=== PATIENT | male | born 1975 | race Caucasian/White ===

== ENCOUNTER 2025-04-22 19:46 | Emergency (ER) | payer SELFPAY ==
[2025-04-22] VITALS (14 sets, daily range): BP systolic 129–168; BP diastolic 72–105; BMI 33.5
[2025-04-22 19:56] LABS: Glucose - Point of Care 136 mg/dl (70-99)
--- NOTE | 2025-04-22 20:08 | ED.CVA ---
History of Present Illness
<Diaz Lewis PA-C - Last Filed: 04/22/25 21:01>
General
Chief Complaint: CVA/TIA Symptoms
Time Seen by Provider: 04/22/25 19:49
Onset of Stroke Symptoms
Onset of symptoms known: Yes
Date of onset of symptoms: 04/22/25
Time of onset of symptoms: 11:00
History of Present Illness
History of Present Illness:
50-year-old male with history of chronic alcohol abuse presents to the emergency department via EMS as a stroke alert per his spouse he abruptly became confused after having intercourse at approximate 11 AM today he seemed to be acting strange
throughout the day and progressively was noticed to have difficulty speaking ultimately she called 911 but she noted that his right arm was not moving. On arrival the patient is awake and follows commands although is somewhat delayed in processing.
He has mild dysarthria and aphasia as well as noticeable right upper extremity weakness. He denies alcohol intake today. No Anticoagulants or antiplatelets. Probably taken a CT scan as a stroke alert
Past History
<Diaz Lewis PA-C - Last Filed: 04/22/25 21:01>
Past History
ED Past Medical History: None
ED Past Surgical History: Appendectomy
Social History
Alcohol: Daily
Drug: Narcotics
Review of Systems
<Diaz Lewis PA-C - Last Filed: 04/22/25 21:01>
Review of Systems
Allergies reviewed?: Yes
All Other Systems: ROS reviewed and negative except as documented in HPI and ROS
Phy Exam
<Diaz Lewis PA-C - Last Filed: 04/22/25 21:01>
Physical Exam
Physical Exam:
GEN: Well appearing, NAD, WDWN
HEENT: Oral mucosa moist, no scleral icterus, no nasal congestion
Cardiac: Tachycardic, regular
Lung: No respiratory distress, no tachypnea
MSK: No gross deformity or injuries
Skin: Good color, no pallor or jaundice, no rashes
Neuro: AO x3; CN II-XII grossly intact. Right upper extremity strength 4 out of 5 with drift, left upper extremity strength 5 out of 5, right lower extremity strength 5 out of 5, left lower extremity strength 5 out of 5, significant sensory loss to
the right upper and right lower extremities. Mild dysarthria and aphasia. Positive limb ataxia to the right upper extremity, no other limb ataxia noted. Visual dior intact x 4
Psych: Calm, cooperative
Course
<Diaz Lewis PA-C - Last Filed: 04/22/25 21:01>
Orders/Labs/Results
Orders:
Orders
04/22/25 19:50
Electrocardiogram (*1) Stat
Reason for Study: Other
Other Reason for Exam: neuro symptoms
CT HEAD STROKE ALERT W/o Cont Urgent
Comment:
Reason For Exam: R sided weakness/sensation loss
CT HEAD/NECK ANG STROKE ALERT Urgent
Comment:
Reason For Exam: R sided weakness/sensation loss
EKG- Treatment ONCE
04/22/25 20:07
Alcohol Urgent
Complete Blood Count/With Diff Urgent
Comprehensive Metabolic Panel Urgent
Troponin I Urgent
Labetalol HCl [Trandate] 10 mg IV NOW STA
Labetalol HCl [Trandate] 20 mg .ROUTE .STK-MED ONE
Nicardipine 40 mg/200 ml [Cardene] 40 mg in 200 ml .ROUTE .STK-MED
04/22/25 20:15
Nicardipine 40 mg/200 ml [Cardene] 40 mg in 200 ml IV PER PROTOCOL
Initial dose in mg/hr, then titrate:: 5
Titrate to keep:: SBP 120 - 140 mmHg
Titrate by mg/hr:: 2.5 mg/hr
Frequency of titrations (minutes):: 5-15 minutes
Maximum dose in mg/hr:: 15
Begin to taper infusion when:: Remained at goal for 2hrs
Taper by mg/hr:: 2.5 mg/hr
Frequency of taper (minutes) if patient maintains goal:: every 15-30 minutes
Taper to off?: Yes
If infusion off & no longer maintaining goal:: Contact Provider
Abnormal Lab Results
04/22/25 04/22/25
19:50 20:07
RBC 4.56 L 10^6/uL
(4.70-6.10)
MCV 96.5 H fL
(80.0-94.0)
MCH 34.4 H pg
(27.0-31.0)
Absolute Lymphs (auto) 0.8 L 10^3/uL
(1.2-3.4)
Absolute Monos (auto) 0.8 H 10^3/uL
(0.1-0.6)
Lymphocytes % 12.7 L %
(20.5-51.1)
Monocytes % 13.4 H %
(1.7-9.3)
Glucose 131 H mg/dl
(70-99)
AST 194 H U/L
(17-59)
ALT 182 H U/L
(0-50)
Total Protein 8.4 H g/dl
(6.3-8.2)
POC Glucose 136 H mg/dl
(70-99)
04/22/25 20:07
04/22/25 20:07
Vital Signs
Initial and Last Documented VS:
Initial Vital Signs
Pulse Resp BP
92 16 156/105
04/22/25 19:51 04/22/25 19:51 04/22/25 19:51
Last Documented Vital Signs
Temp Pulse Resp BP Pulse Ox
99.0 F 108 20 132/72 94
04/22/25 20:14 04/22/25 20:50 04/22/25 20:50 04/22/25 20:50 04/22/25 20:35
<Johnny Goodwin, DO - Last Filed: 04/22/25 20:13>
Orders/Labs/Results
Orders:
Orders
04/22/25 19:50
Electrocardiogram (*1) Stat
Reason for Study: Other
Other Reason for Exam: neuro symptoms
CT HEAD STROKE ALERT W/o Cont Urgent
Comment:
Reason For Exam: R sided weakness/sensation loss
CT HEAD/NECK ANG STROKE ALERT Urgent
Comment:
Reason For Exam: R sided weakness/sensation loss
EKG- Treatment ONCE
04/22/25 20:07
Alcohol Urgent
Complete Blood Count/With Diff Urgent
Comprehensive Metabolic Panel Urgent
Troponin I Urgent
Labetalol HCl [Trandate] 10 mg IV NOW STA
Labetalol HCl [Trandate] 20 mg .ROUTE .STK-MED ONE
Nicardipine 40 mg/200 ml [Cardene] 40 mg in 200 ml .ROUTE .STK-MED
04/22/25 20:15
Nicardipine 40 mg/200 ml [Cardene] 40 mg in 200 ml IV PER PROTOCOL
Initial dose in mg/hr, then titrate:: 5
Titrate to keep:: SBP 120 - 140 mmHg
Titrate by mg/hr:: 2.5 mg/hr
Frequency of titrations (minutes):: 5-15 minutes
Maximum dose in mg/hr:: 15
Begin to taper infusion when:: Remained at goal for 2hrs
Taper by mg/hr:: 2.5 mg/hr
Frequency of taper (minutes) if patient maintains goal:: every 15-30 minutes
Taper to off?: Yes
If infusion off & no longer maintaining goal:: Contact Provider
Abnormal Lab Results
04/22/25 04/22/25
19:50 20:07
RBC 4.56 L 10^6/uL
(4.70-6.10)
MCV 96.5 H fL
(80.0-94.0)
MCH 34.4 H pg
(27.0-31.0)
Absolute Lymphs (auto) 0.8 L 10^3/uL
(1.2-3.4)
Absolute Monos (auto) 0.8 H 10^3/uL
(0.1-0.6)
Lymphocytes % 12.7 L %
(20.5-51.1)
Monocytes % 13.4 H %
(1.7-9.3)
Glucose 131 H mg/dl
(70-99)
AST 194 H U/L
(17-59)
ALT 182 H U/L
(0-50)
Total Protein 8.4 H g/dl
(6.3-8.2)
POC Glucose 136 H mg/dl
(70-99)
04/22/25 20:07
04/22/25 20:07
Vital Signs
Initial and Last Documented VS:
Initial Vital Signs
Pulse Resp BP
92 16 156/105
04/22/25 19:51 04/22/25 19:51 04/22/25 19:51
Last Documented Vital Signs
Temp Pulse Resp BP Pulse Ox
99.0 F 108 20 132/72 94
04/22/25 20:14 04/22/25 20:50 04/22/25 20:50 04/22/25 20:50 04/22/25 20:35
[place];Diaz Lewis PA-C - Last Filed: 04/22/25 21:01>
MDM/Problems Addressed
MDM/Problems Addressed:
Patient taken promptly to CT scanner as a stroke alert where he was identified to have a large left intraparenchymal hemorrhage. Subsequent CTA showed no evidence for aneurysmal rupture. He was promptly started on IV antihypertensives for blood
pressure control. I then discussed the case with neurosurgery and neurocritical care at the [facility], reviewed all pertinent imaging and lab findings. Patient be transferred via flight to [place] for emergent neurosurgical evaluation
and likely operative intervention. Neurologic status remained stable in the ED
<Diaz Lewis PA-C - Last Filed: 04/22/25 21:01>
*Pulse Oximetry
Patient hypoxic: no
Comment: 94%
*Critical Care Note
Total Time (30-74mins, 75-104mins- exclusive of procedures): 60 minutes
comment:
Critical care time: 60 min
Critical care time was exclusive of: Separately billable procedures, treating other patients, and teaching time
Critical care was necessary to treat or prevent imminent or life-threatening deterioration of the following conditions: ICH
Critical care time spent personally by me on the following activities:
[ x] Review of old charts
[x] Obtaining history from patient or surrogate
[x] Ordering and review of the laboratory studies
[x] Ordering and review of radiographic studies
[x] Ordering and performing treatments and interventions
[x] Patient patient's response to treatment
[x] Development of treatment plan with patient or surrogate
ED Attending Note
<Diaz Lewis PA-C - Last Filed: 04/22/25 21:01>
-
Portions of this chart may have been created with voice recognition software.� Occasional wrong word or��sound alike� substitutions may have occurred due to the inherent limitations of voice recognition software.
<Johnny Goodwin DO - Last Filed: 04/22/25 20:13>
ED Attending Note
Patient seen and examined by attending physician: Yes
I performed the substantive portion of visit, reviewed & personally made and approve the management plan that is documented in note by myself or RADHA.: Yes
ED Attending Note:
I have seen and evaluated the patient with a [id number] encounter. I have spoken to the advance practicer provider and involved in the medical history, the physical exam, medical decision making.
Evaluation and management service: agree unless noted differently below.
Results interpretation: agree unless noted differently below.
Focused HPI: 50-year-old male presenting for evaluation of trouble speaking and right arm numbness and weakness. On arrival, stroke alert was called he was sent for CT scan immediately.
Physical exam: Expressive aphasia, weakness to his right arm
Medical Decision Making: CT shows left brain intraparenchymal hemorrhage which explains symptoms. Will discuss case with neurosurgery and transfer
Discharge Plan
Departure
Patient Disposition: Acute Care Hospital
Date of Disposition: 04/22/25
Time of Disposition: 20:08
Discharge Problem:
Intracranial hemorrhage
Prescriptions:
No Action
zolpidem 10 MG tablet
10 mg PO PRN PRN (Reason: sleep)
Hospital Transfer
Other hospital: [place]
I certify that the patient requires transfer: Yes
Discussed case with accepting physician: Gaurav
Reason for transfer: higher level of care
Interventions
Interventions:
*Risk Screen - Suicide Last Done: 04/22/25 19:57
*General Assessment Last Done: 04/22/25 19:57
*Neglect/Abuse Screening Last Done: 04/22/25 19:57
*ED- Fall Risk Assessment Last Done: 04/22/25 19:57
*ED COVID-19 Vaccine History Last Done: 04/22/25 19:57
ED- Pulmonary Assessment Last Done: 04/22/25 20:16
ED- Neurological Assessment Last Done: 04/22/25 20:23
ED- Cardiac Assessment Last Done: 04/22/25 20:16
ED Swallowing Screen Last Done: 04/22/25 20:38
Discharge Date and Time
Print Language: EGYPTIAN
[2025-04-22] MEDS: TRANDATE 10 MG IV (20:10)
[2025-04-22] MEDS: CARDENE 200 IV (20:11)
[2025-04-22 20:16] LABS: % Basophils 0.8 % (0-2); % Eosinophils 0.2 % (0-6); % Immature Granulocytes 0.3 % (0-0.5); % Lymphocytes 12.7 % (20.5-51.1); % Monocytes 13.4 % (1.7-9.3); % Neutrophils 72.6 % (42.2-75.2); Absolute Basophils 0.1 10^3/uL (0-0.2); Absolute Lymphocytes 0.8 10^3/uL (1.2-3.4); Absolute Monocytes 0.8 10^3/uL (0.1-0.6); Absolute Neutrophils 4.3 10^3/uL (1.4-6.5); Hemoglobin 15.7 g/dL (13.0-18.0); Mean Corp Hgb Conc. 35.7 g/dL (33.0-37.0); Mean Corpuscular Hgb 34.4 pg (27.0-31.0); Mean Corpuscular Volume 96.5 fL (80.0-94.0); Mean Platelet Volume 9.9 fL (7.4-10.4); Nucleated Red Blood Cells % 0 % (-); Platelet Count 150 10^3/uL (130-400); Red Blood Cell Count 4.56 10^6/uL (4.70-6.10); Red Cell Dist. Width 11.8 % (11.5-14.5); White Blood Cell Count 5.9 10^3/uL (4.8-10.8)
[2025-04-22 20:31] LABS: ALT (SGPT) 182 U/L (0-50); AST (SGOT) 194 U/L (17-59); Albumin 4.9 g/dl (3.5-5.0); Alcohol 73 mg/dl; Alkaline Phosphatase 63 U/L (38-126); Blood Urea Nitrogen 14 mg/dl (9-20); Calcium 9.7 mg/dl (8.4-10.2); Carbon Dioxide 25 mmol/L (22-30); Chloride 104 mmol/L (98-107); Estimated Creatinine Clearance > 125 ml/min; Glucose 131 mg/dl (70-99); Potassium 4.1 mmol/L (3.5-5.1); Sodium 143 mmol/L (135-145); Total Bilirubin 1.3 mg/dl (0.2-1.3); Total Protein 8.4 g/dl (6.3-8.2); eGFR > 60.00
[2025-04-22 20:41] LABS: Troponin I 0.028 ng/ml
== END 2025-04-22 21:12 | disposition short-term general hospital (02) ==
LOC: EMR 19:46
PROVIDERS: Physician Assistant; EMERGENCY PHYSICIAN Student in an Organized Health Care Education/Training Program
DX: I62.9 Nontraumatic intracranial hemorrhage, unspecified (principal); Z90.49 Acquired absence of other specified parts of digestive tract
CPT/HCPCS: 99291; 96365; 96375; 70450; 70496; 70498; 80053; 82077; 82962; 84484; 85025; 93005; Q9967

== ENCOUNTER 2025-07-09 10:03 | Outpatient (RCR) | payer OTHER, SELFPAY | END 2025-07-09 23:59 | disposition home or self-care (01) | LOC: RST 10:03 | PROVIDERS: ATTENDING PHYSICIAN Physical Medicine & Rehabilitation; FAMILY PHYSICIAN Family Medicine | DX: I69.151 Hemiplegia and hemiparesis following nontraumatic intracerebral hemorrhage affecting right dominant side (principal); Z73.6 Limitation of activities due to disability; I69.120 Aphasia following nontraumatic intracerebral hemorrhage; I69.191 Dysphagia following nontraumatic intracerebral hemorrhage; R13.12 Dysphagia, oropharyngeal phase | CPT/HCPCS: 92507; 92523; 92526; 92610; 97110; 97112; 97116; 97163; 97167; 97530; 97535; 97537 ==

== ENCOUNTER 2025-08-10 14:33 | Outpatient (RCR) | payer OTHER, SELFPAY | END 2025-08-10 23:59 | disposition home or self-care (01) | LOC: RST 14:33 | PROVIDERS: ATTENDING PHYSICIAN Physical Medicine & Rehabilitation; FAMILY PHYSICIAN Family Medicine | DX: I69.151 Hemiplegia and hemiparesis following nontraumatic intracerebral hemorrhage affecting right dominant side (principal); Z73.6 Limitation of activities due to disability; I69.120 Aphasia following nontraumatic intracerebral hemorrhage; I69.191 Dysphagia following nontraumatic intracerebral hemorrhage; R13.12 Dysphagia, oropharyngeal phase | CPT/HCPCS: 92507; 92526; 97110; 97112; 97116; 97530; 97537 ==

== ENCOUNTER 2025-09-09 14:01 | Outpatient (RCR) | payer OTHER, SELFPAY | END 2025-09-09 23:59 | disposition home or self-care (01) | LOC: RST 14:01 | PROVIDERS: ATTENDING PHYSICIAN Physical Medicine & Rehabilitation; FAMILY PHYSICIAN Family Medicine | DX: I69.151 Hemiplegia and hemiparesis following nontraumatic intracerebral hemorrhage affecting right dominant side (principal); Z73.6 Limitation of activities due to disability; I69.120 Aphasia following nontraumatic intracerebral hemorrhage; I69.191 Dysphagia following nontraumatic intracerebral hemorrhage; R13.12 Dysphagia, oropharyngeal phase | CPT/HCPCS: 92507; 92526; 97110; 97112; 97116; 97530 ==

== ENCOUNTER 2025-10-06 06:29 | Outpatient (RCR) | payer OTHER, SELFPAY | END 2025-10-06 23:59 | disposition home or self-care (01) | LOC: RST 06:29 | PROVIDERS: ATTENDING PHYSICIAN Physical Medicine & Rehabilitation; FAMILY PHYSICIAN Family Medicine | DX: I69.120 Aphasia following nontraumatic intracerebral hemorrhage (principal); I69.151 Hemiplegia and hemiparesis following nontraumatic intracerebral hemorrhage affecting right dominant side; Z73.6 Limitation of activities due to disability; I69.191 Dysphagia following nontraumatic intracerebral hemorrhage; R13.12 Dysphagia, oropharyngeal phase | CPT/HCPCS: 92507; 97110; 97112; 97530; 97535; 97537 ==

== ENCOUNTER 2025-11-09 08:41 | Outpatient (RCR) | payer OTHER, SELFPAY | END 2025-11-09 23:59 | disposition home or self-care (01) | LOC: RST 08:41 | PROVIDERS: ATTENDING PHYSICIAN Physical Medicine & Rehabilitation; FAMILY PHYSICIAN Family Medicine | DX: I69.120 Aphasia following nontraumatic intracerebral hemorrhage (principal); I69.151 Hemiplegia and hemiparesis following nontraumatic intracerebral hemorrhage affecting right dominant side; Z73.6 Limitation of activities due to disability; I69.191 Dysphagia following nontraumatic intracerebral hemorrhage; R13.12 Dysphagia, oropharyngeal phase; R26.89 Other abnormalities of gait and mobility | CPT/HCPCS: 92507; 97014; 97110; 97112; 97530; 97535; 97537 ==